=== PATIENT | female | born 1940 | race Caucasian/White ===

== ENCOUNTER → 2016-05-29 | Outpatient (CLI) | payer MEDICARE, BC ==
[~2016-05-29] MED LIST: L-THYROXINE S0.05 MG PO; METOPROLOL SUCC25 M1 PO; NORCO 325 MG-51 TAB PO; ZOFRAN4 MG PO
== END ==
LOC: SUN.DIA 08:37
DX: E11.65 Type 2 diabetes mellitus with hyperglycemia (principal); Z68.38 Body mass index [BMI] 38.0-38.9, adult; Z71.3 Dietary counseling and surveillance; E78.5 Hyperlipidemia, unspecified; I10 Essential (primary) hypertension; Z79.84 Long term (current) use of oral hypoglycemic drugs

== ENCOUNTER → 2016-12-06 | Outpatient (CLI) | payer MEDICARE, BC | LOC: SUN.DIA 10:09 | DX: Z01.89 Encounter for other specified special examinations (principal) ==

== ENCOUNTER → 2016-12-12 | Outpatient (CLI) | payer MEDICARE, BC | LOC: SUN.DIA 12-11 09:34 | DX: E11.9 Type 2 diabetes mellitus without complications (principal); E78.5 Hyperlipidemia, unspecified; E03.9 Hypothyroidism, unspecified; Z68.24 Body mass index [BMI] 24.0-24.9, adult; Z71.3 Dietary counseling and surveillance ==

== ENCOUNTER → 2017-06-19 | Outpatient (CLI) | payer MEDICARE, BC | LOC: SUN.DIA 10:06 | DX: E11.9 Type 2 diabetes mellitus without complications (principal); E78.5 Hyperlipidemia, unspecified; E03.9 Hypothyroidism, unspecified; Z68.26 Body mass index [BMI] 26.0-26.9, adult; Z71.3 Dietary counseling and surveillance ==

== ENCOUNTER → 2017-12-18 | Outpatient (CLI) | payer MEDICARE, BC | LOC: SUN.DIA 10:10 | DX: E11.9 Type 2 diabetes mellitus without complications (principal); E78.5 Hyperlipidemia, unspecified; E03.9 Hypothyroidism, unspecified ==

== ENCOUNTER → 2018-07-16 | Outpatient (CLI) | payer MEDICARE, BC | LOC: SUN.DIA 10:18 | DX: E11.9 Type 2 diabetes mellitus without complications (principal); E03.9 Hypothyroidism, unspecified; E78.5 Hyperlipidemia, unspecified ==

== ENCOUNTER → 2019-01-22 | Outpatient (CLI) | payer MEDICARE, BC | LOC: DIA.ED 09:49 | DX: E11.9 Type 2 diabetes mellitus without complications (principal); E78.5 Hyperlipidemia, unspecified; E03.9 Hypothyroidism, unspecified | CPT/HCPCS: G0270 ==

== ENCOUNTER 2020-09-21 10:44 | Outpatient (RCR) | payer MEDICARE, BC | END 2020-11-09 11:54 | disposition home or self-care (01) | LOC: MKS.ESL.PT 10:44 | DX: M54.89 Other dorsalgia (principal); E11.9 Type 2 diabetes mellitus without complications; I10 Essential (primary) hypertension ==